=== PATIENT | female | born 1945 | race Caucasian/White ===

== ENCOUNTER 2018-07-09 07:41 | Emergency (ER) | payer OTHER ==
[~2018-07-09] VITALS: Ht 160 cm; Wt 90.7 kg
[~2018-07-09 07:41] MED LIST: ALBU-136 IH; AMLO10TA PO; CLON0.1T42 PO; CYCL10TA13 PO; GABA300C PO; ISOS30TE34 PO; LORA-476 PO; METO100T98 PO; NIFE60TE15 PO; ROBAC PO; TEMA30CA23 PO
[2018-07-09 07:46] VITALS: BP 132/64
--- NOTE | 2018-07-09 07:50 | NUR ---
PATIENT AMBULATED TO BED 8.
--- NOTE | 2018-07-09 08:05 | NUR ---
PT BIB SELF C/O DIARRHEA. PT STATES DIARRHEA STARTED LAST NIGHT AROUND 1900, Q20 MIN, WATERY DIARRHEA, PT WHIPPED THIS MORNING AND HAD BLOOD ON TOLIET PAPER. PT STATES INTERMITTENT CRAMPING PAIN 10/10, 0/10 PAIN AT THIS TIME. ABD NON-TENDER THROUGHTOUT. +NAUSEA, +WEAKNESS, +CHILLS. --SKIN WARM, DRY AND INTACT. AAOX4. TACHYCARDIC. PT IN GOWN IN BED; BED IN LOWER LOCKED POSITION. ER MD MADE AWARE OF PT STATUS. WILL CONTINUE TO MONITOR. PMH: HTN, SLEEP APNEA, ARTHRITIS RX: SEE LIST
--- NOTE | 2018-07-09 08:10 | NUR ---
DR. WRIGHT AT BEDSIDE FOR EVALUATION.
[2018-07-09] MEDS ORDERED: NACL 0.9% 1,000 ML IV SCH (08:26)
[2018-07-09] MEDS ORDERED: DIPHENOXYLATE /ATROPINE 2.5 MG TAB PO ONE (08:30)
[2018-07-09] MEDS ORDERED: LOSA100T51 PO (08:44)
[2018-07-09] MEDS ORDERED: AMLO10TA PO (08:44)
[2018-07-09] MEDS ORDERED: SPIR50TA PO (08:44)
[2018-07-09] MEDS ORDERED: TRAZ-343 PO (08:44)
[2018-07-09] MEDS ORDERED: TIZA6CAP PO (08:44)
[2018-07-09] MEDS ORDERED: FURO-572 PO (08:44)
[2018-07-09 09:05] LABS: BASOPHILS # (AUTO) 0.1 K/uL (0.00-0.22); BASOPHILS % (AUTO) 0.5 % (0.0-2.0); EOSINOPHILS # (AUTO) 0.2 K/uL (0-0.4); EOSINOPHILS % (AUTO) 1.5 % (0.0-4.0); HEMOGLOBIN 12.6 g/dL (12.0-16.0); LYMPHOCYTES # (AUTO) 1.9 K/uL (2.5-16.5); LYMPHOCYTES % (AUTO) 16.1 % (20.5-51.1); MEAN CORPUSCULAR HEMOGLOBIN 31 pg (27-31); MEAN CORPUSCULAR HGB CONC 33 g/dL (33-37); MONOCYTES # (AUTO) 0.5 K/uL (0.8-1.0); MONOCYTES % (AUTO) 3.8 % (1.7-9.3); NEUTROPHILS # (AUTO) 9.3 K/uL (1.8-7.7); NEUTROPHILS % (AUTO) 78.1 % (42.2-75.2); PLATELET COUNT (AUTO) 273 K/uL (140-450); RED BLOOD CELL COUNT(AUTO) 4.13 MIL/uL (4.20-5.40); RED CELL DISTRIBUTION WIDTH 14.4 % (11.6-13.7); WHITE BLOOD COUNT (AUTO) 11.9 K/uL (4.8-10.8)
[2018-07-09 09:36] LABS: ANION GAP 10.4 (8-16); CARBON DIOXIDE 26.9 mmol/L (21-32); CHLORIDE 105 mmol/L (98-107); CREATININE 1.2 mg/dL (0.6-1.3); GLUCOSE 132 mg/dL (74-106); POTASSIUM 4.3 mmol/L (3.5-5.1); SODIUM SERUM 138 mmol/L (136-145); UREA NITROGEN, BLOOD 18 mg/dL (7-18)
[2018-07-09 09:42] LABS: ALBUMIN 3.2 g/dL (3.4-5.0); ASPARTATE AMINOTRANSFERASE 14 U/L (15-37); TOTAL BILIRUBIN 0.3 mg/dL (0.0-1.0)
--- NOTE | 2018-07-09 09:47 | NUR ---
RT AT BEDSIDE.
--- NOTE | 2018-07-09 09:47 | NUR ---
Sim alcantara in [facility] - 07/09/18 at 0948 by [email or web address] RT AT BEDSIDE.
[2018-07-09 11:05] VITALS: BP 132/64
--- NOTE | 2018-07-09 11:05 | NUR ---
Patient discharged with v/s stable. Written and verbal after care instructions given and explained. Patient alert, oriented and verbalized understanding of instructions. Ambulatory with steady gait. All questions addressed prior to discharge. ID band removed. Patient advised to follow up with PMD. Rx of LOMOTIL, ZOFRAN given. Patient educated on indication of medication including possible reaction and side effects. Opportunity to ask questions provided and answered.
[2018-07-10] MEDS ORDERED: ATRO1TAB PO (13:09)
== END 2018-07-09 11:05 | disposition home or self-care (01) ==
LOC: MED 07:41
DX: R19.7 Diarrhea, unspecified (principal); R10.9 Unspecified abdominal pain; I10 Essential (primary) hypertension; Z79.899 Other long term (current) drug therapy; Z88.5 Allergy status to narcotic agent; Z88.8 Allergy status to other drugs, medicaments and biological substances
CPT/HCPCS: 36415; 80053; 85025; 96360; 99283; J7030

== ENCOUNTER 2018-07-10 12:49 | Emergency (ER) | payer OTHER ==
[~2018-07-10] VITALS: Ht 160 cm; Wt 96.3 kg
[~2018-07-10 12:49] MED LIST changes: +FURO-572 PO; +LOSA100T51 PO; +SPIR50TA PO; +TIZA6CAP PO; +TRAZ-343 PO
[2018-07-10 13:04] VITALS: BP 150/71
[2018-07-10] MEDS ORDERED: ATRO1TAB PO (13:09)
--- NOTE | 2018-07-10 13:47 | NUR ---
PATIENT AMBULATED TO BED 2 AT THIS TIME.
--- NOTE | 2018-07-10 13:59 | NUR ---
PT BIB FAMILY C/O N/V/D LOW ABD PAIN X 2 DAYS. PT WAS SEEN AT [facility] ER FOR SAME S/S 07/09/18. SKIN IS INTACT, PALE/WARM/DRY; AAOX4, PERRL, WITH EVEN AND STEADY GAIT; LUNGS CLEAR BL, BREATHING UNLABORED; HR EVEN AND REGULAR, BL PERIPHERAL PULSES PRESENT; BS ACTIVE X4, TENDERNESS TO PALPATION, RESONANT TO PERCUSSION; PT DENIES ANY FEVER, CP, SOB, OR COUGH AT THIS TIME; PT STATES 7/10 PAIN AT THIS TIME; VSS; PATIENT POSITIONED FOR COMFORT; HOB ELEVATED; BEDRAILS UP X2; BED DOWN.
[2018-07-10 14:36] LABS: BASOPHILS # (AUTO) 0.1 K/uL (0.00-0.22); BASOPHILS % (AUTO) 0.4 % (0.0-2.0); EOSINOPHILS # (AUTO) 0.4 K/uL (0-0.4); EOSINOPHILS % (AUTO) 2.9 % (0.0-4.0); HEMOGLOBIN 12.3 g/dL (12.0-16.0); LYMPHOCYTES # (AUTO) 4.6 K/uL (2.5-16.5); LYMPHOCYTES % (AUTO) 37.2 % (20.5-51.1); MEAN CORPUSCULAR HEMOGLOBIN 31 pg (27-31); MEAN CORPUSCULAR HGB CONC 33 g/dL (33-37); MEAN CORPUSCULAR VOLUME 92.1 fL (80-94); MONOCYTES # (AUTO) 0.7 K/uL (0.8-1.0); MONOCYTES % (AUTO) 5.5 % (1.7-9.3); NEUTROPHILS # (AUTO) 6.7 K/uL (1.8-7.7); PLATELET COUNT (AUTO) 271 K/uL (140-450); RED BLOOD CELL COUNT(AUTO) 4.02 MIL/uL (4.20-5.40); RED CELL DISTRIBUTION WIDTH 14.5 % (11.6-13.7); WHITE BLOOD COUNT (AUTO) 12.4 K/uL (4.8-10.8)
--- NOTE | 2018-07-10 14:36 | NUR ---
PT GOING TO CT AT THIS TIME
--- NOTE | 2018-07-10 14:44 | NUR ---
PT RETURNED FROM CT AT THIS TIME
[2018-07-10 15:21] LABS: ALBUMIN 3.5 g/dL (3.4-5.0); ANION GAP 11.2 (8-16); ASPARTATE AMINOTRANSFERASE 14 U/L (15-37); CARBON DIOXIDE 28.7 mmol/L (21-32); CHLORIDE 104 mmol/L (98-107); CREATININE 1.1 mg/dL (0.6-1.3); GLUCOSE 106 mg/dL (74-106); POTASSIUM 3.9 mmol/L (3.5-5.1); SODIUM SERUM 140 mmol/L (136-145); TOTAL BILIRUBIN 0.3 mg/dL (0.0-1.0); UREA NITROGEN, BLOOD 15 mg/dL (7-18)
[2018-07-10 16:05] VITALS: BP 140/70
--- NOTE | 2018-07-10 16:05 | NUR ---
Patient discharged with v/s stable. Written and verbal after care instructions given and explained. Patient alert, oriented and verbalized understanding of instructions. Ambulatory with steady gait. All questions addressed prior to discharge. ID band removed. Patient advised to follow up with PMD. Rx of ZOFRAN AND NORCO given. Patient educated on indication of medication including possible reaction and side effects. Opportunity to ask questions provided and answered.
== END 2018-07-10 16:05 | disposition home or self-care (01) ==
LOC: MED 12:49
DX: R19.7 Diarrhea, unspecified (principal); R10.9 Unspecified abdominal pain; R11.0 Nausea; I10 Essential (primary) hypertension; Z79.899 Other long term (current) drug therapy; Z88.5 Allergy status to narcotic agent; Z88.8 Allergy status to other drugs, medicaments and biological substances
CPT/HCPCS: 36415; 80053; 85025; 99284

== ENCOUNTER 2018-10-05 07:47 | Emergency (ER) | payer OTHER ==
[~2018-10-05] VITALS: Ht 160 cm; Wt 96.7 kg
[~2018-10-05 07:47] MED LIST changes: +ATRO1TAB PO
[2018-10-05 07:52] VITALS: BP 165/111
--- NOTE | 2018-10-05 07:57 | NUR ---
PATIENT AMBULATED TO BED 5
--- NOTE | 2018-10-05 08:02 | NUR ---
C/O SHARP/STABBING L LEG PAIN 10/10 RADIATING FROM L BUTTOCKS DOWN L LEG TO L FOOT X 3 WEEKS. 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 PT DENIES INJURY OR TRAUMA, NO OBVIOUS DEFORMITY/BRUISING/REDNESS TO THE EXTREMITY NOTED. M/S FUNCTION INTACT. PT CAN BARE WEIGHT ON THE EXTREMITY. BED IN LOW POSITION, SIDE RAIL UP X1.
[2018-10-05] MEDS ORDERED: MORPHINE SULFATE 2 MG/ML SYR IM ONE (08:05)
--- NOTE | 2018-10-05 08:05 | NUR ---
DR. CHOUDHURY AT BEDSIDE
--- NOTE | 2018-10-05 09:16 | NUR ---
Patient discharged with v/s stable. Written and verbal after care instructions given and explained. Patient verbalized understanding. Ambulatory with steady gait. All questions addressed prior to discharge. Advised to follow up with PMD.
--- NOTE | 2018-10-05 09:17 | NUR ---
PATIENT WAS DISCHARGED
[2018-10-05 09:18] VITALS: BP 161/101
== END 2018-10-05 09:17 | disposition home or self-care (01) ==
LOC: MED 07:47
DX: M54.42 Lumbago with sciatica, left side (principal); G89.29 Other chronic pain; I10 Essential (primary) hypertension; Z79.899 Other long term (current) drug therapy; Z88.6 Allergy status to analgesic agent; Z88.8 Allergy status to other drugs, medicaments and biological substances
CPT/HCPCS: 96372; 99283; J2270

== ENCOUNTER 2023-07-06 08:59 | Emergency (ER) | payer OTHER ==
[~2023-07-06] VITALS: Ht 160 cm; Wt 77.1 kg
[~2023-07-06 08:59] MED LIST changes: +ALBU-118 IH; -ALBU-136 IH; +CLON0.1T16 PO; -CLON0.1T42 PO; +CYCL-655 PO; -CYCL10TA13 PO; -ISOS30TE34 PO; +ISOS30TE44 PO; -LOSA100T51 PO; +LOSA100T52 PO; +METO100T22 PO; -METO100T98 PO
[2023-07-06 09:06] VITALS: BP 127/64; PULSE 71; RESP 18; TEMP 97.4; O2SAT 100
[2023-07-06 09:56] LABS: BASOPHILS # (AUTO) 0.1 K/uL (0.00-0.22); BASOPHILS % (AUTO) 0.8 % (0.0-2.0); EOSINOPHILS # (AUTO) 0.6 K/uL (0-0.4); EOSINOPHILS % (AUTO) 6.9 % (0.0-4.0); HEMATOCRIT 33.1 % (36-48); HEMOGLOBIN 11.4 g/dL (12.0-16.0); LYMPHOCYTES # (AUTO) 2.7 K/uL (2.5-16.5); LYMPHOCYTES % (AUTO) 29.8 % (20.5-51.1); MEAN CORPUSCULAR HEMOGLOBIN 31 pg (27-31); MEAN CORPUSCULAR HGB CONC 35 g/dL (33-37); MEAN CORPUSCULAR VOLUME 88.4 fL (80-94); MONOCYTES # (AUTO) 0.7 K/uL (0.8-1.0); MONOCYTES % (AUTO) 7.5 % (1.7-9.3); NEUTROPHILS # (AUTO) 4.9 K/uL (1.8-7.7); PLATELET COUNT (AUTO) 285 K/uL (140-450); RED BLOOD CELL COUNT(AUTO) 3.74 MIL/uL (4.20-5.40); RED CELL DISTRIBUTION WIDTH 14.9 % (11.6-13.7); WHITE BLOOD COUNT (AUTO) 8.9 K/uL (4.8-10.8)
[2023-07-06 09:58] LABS: APPEARANCE,URINE CLEAR (CLEAR); BILIRUBIN,URINE NEGATIVE (NEGATIVE); BLOOD, URINE TRACE-I (NEGATIVE); COLOR,URINE YELLOW (YELLOW); LEUKOCYTE ESTERASE ,URINE NEGATIVE (NEGATIVE); NITRITE, URINE NEGATIVE (NEGATIVE); PH,URINE 6.5 (5.0-9.0); PROTEIN,URINE NEGATIVE (NEGATIVE); UGLUCOSE NEGATIVE (NEGATIVE); UROBILINOGEN,URINE 0.2 EU/dL (0.2 - 1)
[2023-07-06 10:08] LABS: ANION GAP 10.4 (8-16); CALCIUM 8.8 mg/dL (8.5-10.1); CARBON DIOXIDE 27.8 mmol/L (21-32); CHLORIDE 103 mmol/L (98-107); CREATININE 0.8 mg/dL (0.6-1.3); GLUCOSE 114 mg/dL (74-106); POTASSIUM 3.2 mmol/L (3.5-5.1); SODIUM SERUM 138 mmol/L (136-145); UREA NITROGEN, BLOOD 13 mg/dL (7-18)
[2023-07-06 10:14] LABS: ALBUMIN 2.8 g/dL (3.4-5.0); BILIRUBIN,DIRECT 0.1 mg/dL (0.0-0.3); TOTAL BILIRUBIN 0.2 mg/dL (0.0-1.0); TOTAL PROTEIN, SERUM 7.6 g/dL (6.4-8.2)
[2023-07-06] MEDS ORDERED: AMOX1TAB8 PO (10:57)
[2023-07-06 11:20] VITALS: BP 123/47; PULSE 55; TEMP 98.5; O2SAT 100
== END 2023-07-06 11:20 | disposition home or self-care (01) ==
LOC: MED 08:59
DX: K57.92 Diverticulitis of intestine, part unspecified, without perforation or abscess without bleeding (principal); J44.9 Chronic obstructive pulmonary disease, unspecified; I10 Essential (primary) hypertension; Z88.8 Allergy status to other drugs, medicaments and biological substances; Z79.899 Other long term (current) drug therapy
CPT/HCPCS: 36415; 80048; 80076; 81003; 83690; 85025; 99284